=== PATIENT | female | born 1985 | race Caucasian/White ===

== ENCOUNTER 2016-12-17 20:31 | Emergency (ER) | payer OTHER ==
[2016-12-17 20:41] VITALS: BP 109/75
--- NOTE | 2016-12-17 20:46 | UC ---
Back Pain HPI - HPI Summary HPI Summary: 31 YEAR OLD FEMALE PRESENTS WITH LOWER BACK PAIN AFTER LIFTING HEAVY BOXES. - History of Current Complaint Chief Complaint: UCBackPain Stated Complaint: BACK PAIN Time Seen by Provider: 12/17/16 20:42 Hx Obtained From: Patient Hx Last Menstrual Period: 12/12/16 Onset/Duration: Lasting Days Timing: Intermittent Severity Initially: Moderate Severity Currently: Moderate Pain Scale Used: 0-10 Numeric - 5 Character: Sharp, Spasmodic Aggravating: Movement Alleviating: Rest, Position - Allergies/Home Medications Allergies/Adverse Reactions: Allergies Allergy/AdvReac Type Severity Reaction Status Date / Time Pertussis Vaccine Allergy Severe LOSE Verified 12/17/16 20:41 CONTROL OF MUSCLES,TWITCHING Ethanol [From Robitussin] Allergy Unknown Difficulty Verified 12/17/16 20:41 Breathing Guaifenesin [From Robitussin] Allergy Unknown Difficulty Verified 12/17/16 20:41 Breathing PMH/Surg Hx/FS Hx/Imm Hx Previously Healthy: Yes Other History Of: Negative For: HIV, Hepatitis B, Hepatitis C, Anticoagulant Therapy - Surgical History Surgical History: None - Family History Known Family History: Positive: None, Hypertension Negative: Cardiac Disease, Diabetes - Social History Alcohol Use: None Substance Use Type: None Smoking Status (MU): Never Smoked Tobacco Have You Smoked in the Last Year: No Review of Systems Constitutional: Negative Skin: Negative Eyes: Negative ENT: Negative Respiratory: Negative Cardiovascular: Negative Gastrointestinal: Negative Genitourinary: Negative Motor: Negative Neurovascular: Negative Musculoskeletal: Other: - LOWER BACK PAIN/SPASM Neurological: Negative Psychological: Negative All Other Systems Reviewed And Are Negative: Yes Physical Exam Triage Information Reviewed: Yes Vital Signs: Initial Vital Signs Temp 36.9 C 12/17/16 20:33 Pulse 74 12/17/16 20:33 Resp 16 12/17/16 20:33 BP 109/75 12/17/16 20:33 Pulse Ox 100 12/17/16 20:33 Eye Exam: Normal ENT Exam: Normal Dental Exam: Normal Neck exam: Normal Neck: Positive: 1 Respiratory Exam: Normal Cardiovascular Exam: Normal Abdominal Exam: Normal Musculoskeletal: Positive: Other: - LOWER BACK SPASM/PAIN Neurological Exam: Normal Psychological Exam: Normal Skin Exam: Normal Back Pain Course/Dx - Differential Dx/Diagnosis Provider Diagnoses: LOWER BACK SPASM Discharge - Discharge Plan Condition: Stable Disposition: HOME Prescriptions: Ibuprofen TAB* [Motrin TAB* 800 MG] 800 mg PO Q8H PRN #30 tab PRN Reason: Pain Methocarbamol TAB* [Robaxin 500 MG TAB*] 500 mg PO TID PRN #30 tab PRN Reason: Spasms - Back Patient Education Materials: Low Back Strain (ED), Acute Low Back Pain (ED) Referrals: Comfort Palomares MD [Primary Care Provider] -
[2016-12-17] MEDS ORDERED: Ibuprofen TAB* 200 MG PO ONE (20:49)
== END 2016-12-17 20:55 | disposition home or self-care (01) ==
LOC: UCEAST 20:31
DX: M62.830 Muscle spasm of back (principal); Z88.7 Allergy status to serum and vaccine
CPT/HCPCS: 99212; A9270-GY; G0463

== ENCOUNTER 2017-01-16 09:49 | Emergency (ER) | payer OTHER ==
[2017-01-16] MEDS ORDERED: Ibuprofen TAB* 400 MG PO ONE (10:48)
[2017-01-16] MEDS ORDERED: Ondansetron ODT TAB* 4 MG PO ONE (10:48)
--- NOTE | 2017-01-16 11:02 | UC ---
Headache HPI - HPI Summary HPI Summary: Patient presents with past medical history of migraine headaches. She complains of headache that is right sided and behind her eye, radiates to the right ear x three days. She states in came on typical of her migraines, but it has persisted and she cannot get it to go away she states the dizzines and ea pain are new findings. Last night she vomited x 6 hours. She denies any blurred vision, slurred speech, numbness, tingling or weakness of the extremities. She denies fever, neck pain, or any recent illnesses. She grades the headache a 4/ 10 at this time. - History Of Current Complaint Chief Complaint: UCGeneralIllness Stated Complaint: HEADACHE, EARACHE, AND DIZZINESS Time Seen by Provider: 01/16/17 10:41 Hx Obtained From: Patient Hx Last Menstrual Period: 01/09/17 ?: No Onset/Duration: Gradual Onset, Lasting Days Onset Of Symptoms: Gradual, Still Present Currently Pain Is: Current Pain Scale(0-10)= - 4/10, Mild Timing: Intermittent, Lasting: Character: Dull Location of Headache: Frontal Aggravating Factor: Bright Lights Allevating Factors: Rest, Medication Associated Signs And Symptoms: Positive: Dizziness, Nausea, Vomiting, Sinus Pressure Related History: Similar Episode/DX As: - migraine - Risk Factors SAH Risk Factors: Negative Meningitis Risk Factors: Negative SDH Risk Factors: Negative Temporal Arteritis Risk Factors: Negative - Allergies/Home Medications Allergies/Adverse Reactions: Allergies Allergy/AdvReac Type Severity Reaction Status Date / Time Pertussis Vaccine Allergy Severe LOSE Verified 01/16/17 09:55 CONTROL OF MUSCLES,TWITCHING Ethanol [From Robitussin] Allergy Unknown Difficulty Verified 01/16/17 09:55 Breathing Guaifenesin [From Robitussin] Allergy Unknown Difficulty Verified 01/16/17 09:55 Breathing Home Medications: Home Medications Acetaminophen [Tylenol] 650 mg PO TID 01/16/17 [History Confirmed 01/16/17] PMH/Surg Hx/FS Hx/Imm Hx Previously Healthy: Yes Neurological History: Migraine Other History Of: Negative For: HIV, Hepatitis B, Hepatitis C, Anticoagulant Therapy - Surgical History Surgical History: None - Family History Known Family History: Positive: None, Hypertension, Other - migraine headache- maternal Negative: Cardiac Disease, Diabetes Family History: mother-migraine headache. - Social History Occupation: Employed Full-time Lives: Alone Alcohol Use: None Substance Use Type: None Smoking Status (MU): Never Smoked Tobacco Have You Smoked in the Last Year: No Review of Systems Constitutional: Negative Skin: Negative Eyes: Negative ENT: Ear Ache, Sinus Pain/Tenderness Respiratory: Negative Cardiovascular: Negative Gastrointestinal: Negative Genitourinary: Negative Motor: Negative Neurovascular: Other - dizziness Is Patient Immunocompromised?: No All Other Systems Reviewed And Are Negative: Yes Physical Exam Triage Information Reviewed: Yes Appearance: Pain Distress Vital Signs: Initial Vital Signs Temp 99.1 F 01/16/17 09:57 Pulse 75 01/16/17 09:57 Resp 16 01/16/17 09:57 BP 111/78 01/16/17 09:57 Pulse Ox 100 01/16/17 09:57 Vital Signs Reviewed: Yes Eye Exam: Normal ENT Exam: Normal Neck exam: Normal Respiratory Exam: Normal Cardiovascular Exam: Normal Abdominal Exam: Normal Musculoskeletal Exam: Normal Neurological Exam: Normal Skin Exam: Normal Headache Course/Dx - Course Course Of Treatment: Patient presents with PMH of migraine headaches, with 3 day onset right sided frontal pain that radiates to her ear. She has normal vital signs and is afebrile, with no nucal rigidity. There were new symtpoms of ear pain and dizziness therefore a CT brain was obtained and read as negative. She was given Ibuprofen 400 mg, and zofran 4 mg in the department. - Differential Dx/Diagnosis Differential Diagnosis/HQI/PQRI: Migraine Provider Diagnoses: migraine Discharge - Discharge Plan Condition: Stable Disposition: HOME Prescriptions: Metoclopramide TAB* [Reglan TAB*] 10 mg PO Q8H PRN #14 tab PRN Reason: Nausea Patient Education Materials: Acute Headache (ED) Forms: *Work Release Referrals: Comfort Palomares MD [Primary Care Provider] - Additional Instructions: Patient agrees that if the headache persist into tomorrow she will go to the ER for further evaluation.
--- NOTE | 2017-01-16 11:48 | RAD ---
INDICATION: Head injury. COMPARISON: There are no prior studies available for comparison. TECHNIQUE: Contiguous axial sections of the brain were obtained from the skull base to the vertex without contrast. FINDINGS: The ventricles, cisterns and sulci are within normal limits. No significant focal abnormality or mass effect is seen. There is no evidence for hemorrhage. No significant focal osseous abnormality is seen. The visualized portion of the paranasal sinuses and mastoid air cells appear clear. IMPRESSION: NO EVIDENCE FOR ACUTE INTRACRANIAL ABNORMALITY.
[2017-01-16 11:55] VITALS: BP 105/69
== END 2017-01-16 11:55 | disposition home or self-care (01) ==
LOC: UCEAST 09:49
DX: G43.909 Migraine, unspecified, not intractable, without status migrainosus (principal); R42 Dizziness and giddiness; R11.2 Nausea with vomiting, unspecified
CPT/HCPCS: 70450; 99212; A9270-GY; G0463